=== PATIENT | female | born 1990 | race Caucasian/White ===

== ENCOUNTER 2016-11-21 03:50 | Emergency (ER) | payer OTHER, MEDICAID ==
[~2016-11-21] VITALS: Ht 157.5 cm; Wt 54.4 kg
[2016-11-21 03:50] VITALS: BP 101/67; PULSE 68; RESP 20; TEMP 98.5; O2SAT 100
--- NOTE | 2016-11-21 03:50 | NUR ---
Patient to ER bed 5 to gown for evaluation. Side rails up. Report given to ALICE DAS.
--- NOTE | 2016-11-21 04:15 | NUR ---
Leeann pearl in ED - 11/21/16 at 0604 by NICANOR OSCAR BLACKWOOD at bedside examining patient.
--- NOTE | 2016-11-21 04:18 | NUR ---
ER at bedside examining patient.
--- NOTE | 2016-11-21 04:18 | NUR ---
PT C/O FALLING ON THE FLOOR ON THE WAY TO THE BATHROOM, SHE COULDN'T WALK, COULDN'T SEE, THEN ABLE TO SEE WHEN THE AMBULANCE CAME. EYES PERRL, NO N/V, NO SÁNCHEZ OR DISTRESS. SAFETY PRECAUTIONS IN PLACE, WILL CONTINUE TO MONITOR.
[2016-11-21 04:27] LABS: BILIRUBIN,URINE NEGATIVE (NEGATIVE); BLOOD, URINE NEGATIVE (NEGATIVE); CLARITY/URINE CLEAR (CLEAR); COLOR,URINE YELLOW (YELLOW); GLUCOSE,URINE NEGATIVE (NEGATIVE); KETONES,URINE NEGATIVE (NEGATIVE); LEUKOCYTE ESTERASE ,URINE NEGATIVE (NEGATIVE); NITRITE, URINE NEGATIVE (NEGATIVE); PROTEIN URINE TRACE (NEGATIVE); UROBILINOGEN,URINE 0.2 (0.2-1.0)
[2016-11-21] MEDS ORDERED: NS 500 ML IV ONE (04:30)
[2016-11-21 04:49] LABS: BASOPHILS # (AUTO) 0.2 K/uL (0.0-0.2); BASOPHILS % (AUTO) 1.8 % (0.0-2.0); EOSINOPHILS # (AUTO) 0.1 K/uL (0.0-0.4); EOSINOPHILS % (AUTO) 0.6 % (0.0-4.0); HEMOGLOBIN 11.8 g/dL (12.0-16.0); LYMPHOCYTES # (AUTO) 1.5 K/uL (1.0-5.5); MEAN CORPUSCULAR HEMOGLOBIN 29 pg (27-31); MEAN CORPUSCULAR HGB CONC 33 % (32-36); MEAN CORPUSCULAR VOLUME 89 fL (79.0-98.0); MONOCYTES # (AUTO) 0.6 K/uL (0.0-1.0); MONOCYTES % (AUTO) 6.3 % (1.7-9.3); NEUTROPHILS # (AUTO) 6.4 K/uL (1.8-7.7); NEUTROPHILS % (AUTO) 74.3 % (40.0-70.0); PLATELET COUNT (AUTO) 279 K/uL (130-430); RED BLOOD CELL COUNT(AUTO) 4.05 MIL/uL (4.2-6.2); RED CELL DISTRIBUTION WIDTH 12.1 % (9.0-15.0); WHITE BLOOD COUNT (AUTO) 8.8 K/uL (4.8-10.8)
[2016-11-21 04:54] LABS: CALCIUM 8.5 mg/dL (8.4-11.0); CHLORIDE 109 mmol/L (98-107); CREATININE 0.61 mg/dL (0.55-1.30); GLUCOSE 83 mg/dL (70-99); SODIUM SERUM 137 mmol/L (136-145); UREA NITROGEN, BLOOD 8 mg/dL (8-21)
[2016-11-21 04:55] LABS: BACTERIA,URINE FEW /HPF (None Seen); BARBITURATE, URINE NEGATIVE (NEG <=200); BENZODIAZEPINE, URINE NEGATIVE (NEG <=150); CANNABINOID, URINE NEGATIVE (NEG <=50); COCAINE, URINE NEGATIVE (NEG <=150); HYALINE CASTS, URINE 0-10 /LPF (None Seen); METHAMPHETAMINES SCREEN,URINE NEGATIVE (NEG <=500); MUCUS,URINE 1+ /LPF (None Seen); OPIATE, URINE NEGATIVE (NEG <=100); PHENCYCLIDINE SCREEN,URINE NEGATIVE (NEG <=25); RBC,URINE 0-3 /HPF (0-3); UR TRICYCLIC ANTIDEPRESSANTS NEGATIVE (NEG <=300); URINE AMPHETAMINE NEGATIVE (NEG <=500); URINE METHADONE NEGATIVE (NEG <=200); URINE OXYCODONE SCREEN NEGATIVE (NEG <=100); URINE PROPOXYPHENE SCREEN NEGATIVE (NEG <=300); WBC,URINE 0-3 /HPF (0-3)
[2016-11-21 04:58] LABS: ALANINE AMINOTRANSFERASE 16 U/L (12-78); ASPARTATE AMINOTRANSFERASE 13 U/L (10-37); TOTAL BILIRUBIN 0.4 mg/dL (0.0-1.0); TOTAL PROTEIN, SERUM 6.8 g/dL (6.4-8.3)
[2016-11-21 04:59] LABS: ANION GAP < 3 (5-15); GFR AFRICAN AMERICAN 155 mL/min (>90)
[2016-11-21 05:55] VITALS: BP 101/67; PULSE 68; RESP 20; TEMP 98.5; O2SAT 100
--- NOTE | 2016-11-21 05:55 | NUR ---
Patient given written and verbal discharge instructions and verbalizes understanding. ER MD DR. BLACKWOOD discussed with patient the results and treatment provided. Patient in stable condition. ID arm band removed. IV catheter removed intact and dressing applied, no active bleeding. Patient educated to follow up with PMD. Pain Scale 0/10, PT STATES SHE FEELS MUCH BETTER, AMBULATED W/ STEADY GAIT. Opportunity for questions provided and answered.
== END 2016-11-21 05:55 | disposition home or self-care (01) ==
LOC: SED 03:50
DX: R55 Syncope and collapse (principal)
CPT/HCPCS: 36415; 70450; 80053; 80307; 81000; 83735; 85025; 93005; 99285; J7040